=== PATIENT | female | born 1985 | race Caucasian/White ===

== ENCOUNTER → 2019-04-04 17:37 | Outpatient (CLI) | payer OTHER, SELFPAY ==
[2019-04-04 14:02] VITALS: BMI 36.6
[2019-04-10 14:51] LABS: HPV APTIMA, High Risk Negative (Negative)
== END ==
PROVIDERS: Referring Provider Nurse Practitioner Women's Health; Visit Provider Nurse Practitioner Women's Health
DX: Z12.4 Encounter for screening for malignant neoplasm of cervix (principal)
CPT/HCPCS: 87624; 88175; G0145